=== PATIENT | male | born 1945 | race Caucasian/White ===

== ENCOUNTER → 2016-10-20 | Day surgery (SDC) | payer MEDICARE, OTHER ==
[~2016-10-20] VITALS: Ht 185.4 cm; Wt 111.1 kg
[~2016-10-20] MED LIST: ALEVE220 M1 PO; ASPIRIN LO-DOSE81 MG PO; COUMADIN ** IA5 MG PO; COUMADIN **IA2.5 MG PO; COZAAR50 MG PO; FLOMAX0.4 MG PO; KEFLEX250 MG PO; LOPRESSOR25 MG PO; MINOCYCLINE HCL50 M1 PO; NORCO 5-325 TA1 EACH PO; PERCOCET 5-3251 EACH PO; PLAVIX75 MG PO; TYLENOL/COD#31 TAB PO; TYLENOL325 MG PO; ULTRAM50 MG PO
--- NOTE | ~2016-10-20 | OR ---
PATIENT'S NAME: LINH URBINA [facility] AGE: 71 Y [address] ROOM: [place] [address] LOCATION: [facility] [place] DATE: 10/20/2016 OR/Procedure Report DISCHARGE DATE: FAMILY PHYSICIAN: MORA THOMSON MD ATTENDING PHYSICIAN: Benja Pickering SURGEON: Benja Pickering MD BACKEND DEVELOPER: DATE OF PROCEDURE: 10/20/2016 PREOPERATIVE DIAGNOSIS: Symptomatic reducible right inguinal hernia. POSTOPERATIVE DIAGNOSIS: Symptomatic reducible right inguinal hernia. PROCEDURE PERFORMED: Right inguinal herniorrhaphy with extra large ProLoop Mesh plug and patch onlay at the inguinal floor. ANESTHESIA: IV sedation with 20 mL of 0.5% Marcaine. SPECIMEN: None. INDICATION: The patient is a pleasant 71-year-old gentleman, kindly referred by Dr. Thomson for evaluation of a symptomatic reducible right inguinal hernia. We discussed operative repair versus observation. He agreed to proceed. DESCRIPTION OF PROCEDURE: After informed consent, the patient was taken to the operating room, and after IV sedation, the anterior right groin and scrotum were prepped and draped into a sterile field. A time-out was performed. We confirmed the patient, correct site of the procedure, and administration of preop antibiotics. Local anesthetic was infiltrated throughout the procedure. Incision was made above and parallel to the right inguinal ligament, carried down through Gerri's fascia. Exposed the external oblique which we divided through the external ring. We got control around the cord structures with a Neskowin drain. We split the cremasteric muscles, identified no indirect hernia sac. There was a large defect of the medial inguinal floor, we scored the attenuated aponeuroses in the properitoneal space. We placed our ProLoop extra large mesh plug and sewed it down to Rufino's ligament inferiorly and above to the conjoint tendon. Pre-shaped keyhole mesh was then laid over the floor of the cord and the nerve went through the defect in the mesh. We sewed the mesh down to the pubic tubercle, down to Rufino's with a transition stitch up to the shelving edge of the inguinal ligament, progressed lateral to the internal ring. Above, it was tacked down to the internal oblique aponeuroses. The mesh was reunited above the internal ring. The external oblique was closed with 2-0 Vicryl, Gerri's with 3-0 Vicryl, and the skin closed with subcuticular 4-0 Vicryl. Steri- PATIENT'S NAME: LINH URBINA [facility] AGE: 71 Y [address] ROOM: [place] [address] LOCATION: [facility] [place]MIT DATE: 10/20/2016 OR/Procedure Report DISCHARGE DATE: FAMILY PHYSICIAN: MORA THOMSON MD ATTENDING PHYSICIAN: Benja Pickering Strips and sterile dressings were applied. The patient tolerated the procedure well and transferred to recovery room in stable condition. BENJA PICKERING MD WTS/modl /[id number] d: 11/05/16 1032 t: 11/24/16 1609, OPERATIVE SUMMARY
[2016-10-20 07:49] LABS: INR - (THERAPEUTIC) 1.01 (0.92-1.07); PROTIME 10.6 SECONDS (9.8-11.4)
== END ==
LOC: GPOC 10-18 13:00 → GSDC 06:59
PROVIDERS: Surgery
PROC: 0YU50JZ Supplement Right Inguinal Region with Synthetic Substitute, Open Approach (ICD-10-PCS; principal; 2016-10-20)
DX: K40.90 Unilateral inguinal hernia, without obstruction or gangrene, not specified as recurrent (principal); I10 Essential (primary) hypertension; Z86.73 Personal history of transient ischemic attack (TIA), and cerebral infarction without residual deficits; Z87.442 Personal history of urinary calculi; Z98.890 Other specified postprocedural states; Z79.01 Long term (current) use of anticoagulants; Z88.2 Allergy status to sulfonamides; Z87.891 Personal history of nicotine dependence; Z79.899 Other long term (current) drug therapy; Z79.82 Long term (current) use of aspirin
CPT/HCPCS: C1781; J0690; J2001; J7120